=== PATIENT | male | born 1970 | race Caucasian/White ===

== ENCOUNTER 2017-12-16 12:28 | Emergency (ER) | payer OTHER ==
[~2017-12-16] VITALS: Ht 180.3 cm; Wt 79.4 kg
[2017-12-16] MEDS ORDERED: fentaNYL PF VIAL 100 MCG/2 ML VIAL IV ONE (12:45)
--- NOTE | 2017-12-16 12:45 | PHYS DOC ---
Adult General Chief Complaint Chief Complaint: LOWEREXTREMITY INJURY HPI HPI Patient is a 47 year old male who presents with left ankle injury. Patient was at work. He was using a large prybar to do some activity when he fell and sustained an injury to the left shoulder. He presents to the ER complaining of deformity and severe pain and swelling. He did not sustain additional injury. Review of Systems Review of Systems Constitutional: Denies fever Eyes: Denies change in visual acuity HENT: Denies Respiratory: Denies Cardiovascular: No additional information GI: Denies abdominal pain Musculoskeletal: Denies back pain Integument: Denies rash or skin lesions All other systems were reviewed and found to be within normal limits, except as documented in this note. Current Medications Current Medications Current Medications Medications (Trade) Dose Ordered Sig/Riana Start Time Stop Time Status Last Admin Dose Admin Fentanyl Citrate (Fentanyl 2ml Vial) 75 mcg 1X ONCE 12/16/17 12:45 12/16/17 12:46 DC 12/16/17 12:46 75 MCG Morphine Sulfate (Morphine Sulfate) 4 mg 1X ONCE 12/16/17 14:00 12/16/17 14:01 DC 12/16/17 14:09 4 MG Allergies Allergies Allergies Coded Allergies Type Severity Reaction Last Updated Verified No Known Drug Allergies 12/16/17 No Physical Exam Physical Exam Constitutional: Well developed, well nourished, significant distress 2/2 pain HENT: Normocephalic, atraumatic, bilateral external ears normal, oropharynx moist Neck: Normal range of motion Cardiovascular:Heart rate regular rhythm, no murmur Lungs & Thorax: Bilateral breath sounds clear to auscultation Abdomen: Bowel sounds normal, soft Skin: Warm, dry, no erythema, no rash Extremities: deformity, swelling, ecchymosis over left ankle. 2+ dp and pt pulses. Sensation to light touch intact over all dermatomes. Able to move toes Neurologic: Alert and oriented X 3 Psychologic: Affect normal Current Patient Data Vital Signs Vital Signs Date Time Temp Pulse Resp B/P (MAP) Pulse Ox O2 Delivery O2 Flow Rate FiO2 12/16/17 14:33 76 14 139/99 (112) 97 Room Air 12/16/17 12:32 97.9 97.9 EKG EKG [] Radiology/Procedures Radiology/Procedures Ankle plain film: negative for acute fx Tib/Fib: MPRESSION: 1. Acute nondisplaced proximal fibular fracture. 2. Nondisplaced fracture of the posterior malleolus of the distal tibia which is probably recent. Course & Med Decision Making Course & Med Decision Making Pertinent Labs and Imaging studies reviewed. (See chart for details) 12:40: Patient is seen immediately on arrival. IV pain medications ordered. Xray of left ankle. 15:00: Tib-fib films are returned and documented above. The patient continues to have good circulation distally. He has no signs of compartment syndrome. His calf compartments are soft. Long leg splint is placed. Post splint evaluation: distal capillary refill < 2 seconds. Sensation to light touch intact. Splint is in good position. Patient is visiting this area from out of town. He is discharged home with crutches and splint care instructions as well as pain medication. He is advised to follow-up with an orthopedic surgeon associated arrives back at his home. He does have a 12 hour ride to get home. He is also advised to take one full strength aspirin between now and through his travels. Dragon Disclaimer Dragon Disclaimer This electronic medical record was generated, in whole or in part, using a voice recognition dictation system. Departure Departure Scripts Hydrocodone/Apap 5-325 (NORCO 5-325 TABLET) 1 Each Tablet 2 EACH PO PRN Q6HRS PRN for severe pain, #30 as needed for pain Prov: BUFFY PEREZ DO 12/16/17 Ibuprofen (IBUPROFEN) 800 Mg Tablet 800 MG PO PRN TID PRN for PAIN, #30 TAB take with food or milk to avoid upsetting stomach Prov: BUFFY PEREZ DO 12/16/17 BUFFY PEREZ DO Dec 16, 2017 12:45
--- NOTE | 2017-12-16 13:24 | RAD ---
History: Fall today. Pain and swelling. Comparison: None. Findings: AP, lateral, and oblique views of the left ankle. No acute fracture or dislocation is identified. There appears to be a mild diffuse ankle soft tissue swelling. Mild tibiotalar degeneration is seen. Impression: No acute osseous traumatic injury identified. Electronically signed by: Lit Marcum MD (12/16/2017 1:20 PM) [facility]
[2017-12-16] MEDS ORDERED: MORPHINE SULFATE 4 MG/ML VIAL. IV ONE (14:00)
--- NOTE | 2017-12-16 14:25 | RAD ---
Left tibia and fibula, 2 views, 12/16/2017: HISTORY: Fall There is a nondisplaced fracture of the proximal fibula. There is a cortical discontinuity along the posterior margin of the posterior malleolus of the distal tibia as seen on the lateral view. This was not evident on the lateral ankle radiograph. The appearance suggests a nondisplaced fracture. IMPRESSION: 1. Acute nondisplaced proximal fibular fracture. 2. Nondisplaced fracture of the posterior malleolus of the distal tibia which is probably recent. Electronically signed by: Alphonso Renner MD (12/16/2017 2:21 PM) [facility]
[2017-12-16 14:33] VITALS: BP 139/99
[2017-12-16] MEDS ORDERED: IBUP-1060 PO (14:54)
[2017-12-16] MEDS ORDERED: HYDR-971 PO (14:54)
[2017-12-16] MEDS ORDERED: IV NORMAL SALINE 1000ML BAG 1,000 ML IV SCH (14:59)
[2017-12-16] MEDS ORDERED: ONDANSETRON PF 4 MG/2 ML VIAL. IV PRN (15:00)
[2017-12-16] MEDS ORDERED: ASPIRIN 325 MG TABLET PO ONE (15:15)
== END 2017-12-16 15:30 | disposition home or self-care (01) ==
LOC: ER 12:28
DX: S82.832A Other fracture of upper and lower end of left fibula, initial encounter for closed fracture (principal); S82.392A Other fracture of lower end of left tibia, initial encounter for closed fracture; W18.39XA Other fall on same level, initial encounter; Y93.89 Activity, other specified; Y92.89 Other specified places as the place of occurrence of the external cause; Y99.0 Civilian activity done for income or pay
CPT/HCPCS: 29515; 73590; 73610; 96374; 96375; 99284; J2270; J3010; 29125